=== PATIENT | female | born 1995 | race Caucasian/White ===

== ENCOUNTER 2024-07-14 14:27 | Outpatient (CLI) | payer BC, SELFPAY | END 2024-07-14 14:28 | disposition home or self-care (01) | PROVIDERS: PCP Family Medicine; Visit Provider Family Medicine | DX: E03.9 Hypothyroidism, unspecified (principal); Z11.59 Encounter for screening for other viral diseases | CPT/HCPCS: 80053; 84439; 84443; 86803 ==

== ENCOUNTER 2024-08-16 11:23 | Outpatient (CLI) | payer BC, SELFPAY ==
--- NOTE | 2024-08-16 11:30 | CRLHL7_ITS ---
For Patients: As a result of the Century Cures Act, medical imaging exams and procedure reports are released immediately into your electronic medical record. You may view this report before your referring provider. If you have questions, please contact your health care provider. INDICATION: Elevated liver enzymes TECHNIQUE: Ultrasound abdomen limited. Sonographic images of the right upper quadrant were obtained using mike-scale and color Doppler images. COMPARISON: None. FINDINGS: Liver: Normal in size. Heterogeneous echotexture. No suspicious masses. No intrahepatic biliary dilatation. Gallbladder: Prior cholecystectomy Common bile duct: 7 mm. Pancreas: Unremarkable. Right kidney: Normal in size measuring 11.2 x 3.9 x 6.1 cm. Normal echotexture and cortex. No suspicious masses, stones, or hydronephrosis. Vasculature: Proximal abdominal aorta and IVC are unremarkable. IMPRESSION: 1. Heterogeneous hepatic echotexture, which could indicate acute or chronic hepatic dysfunction. 2. Prominent common bile duct measuring up to 7 mm, likely reservoir effect secondary to prior cholecystectomy. Dictated by Shaniqua Martinez MD @ 08/18/2024 9:04:26 AM (Electronically Signed)
== END 2024-08-16 11:24 | disposition home or self-care (01) ==
LOC: US 11:25
PROVIDERS: PCP Family Medicine; Visit Provider Family Medicine
DX: R74.01 Elevation of levels of liver transaminase levels (principal); K76.9 Liver disease, unspecified
CPT/HCPCS: 76705

== ENCOUNTER 2024-08-29 10:17 | Outpatient (CLI) | payer BC, SELFPAY | END 2024-08-29 10:18 | disposition home or self-care (01) | PROVIDERS: PCP Family Medicine; Visit Provider Family Medicine | DX: R74.01 Elevation of levels of liver transaminase levels (principal); E03.9 Hypothyroidism, unspecified | CPT/HCPCS: 80053; 84443 ==

== ENCOUNTER 2025-08-22 15:09 | Outpatient (CLI) | payer BC, SELFPAY ==
[2025-08-24 13:27] LABS: HPV Source Endocervical
[2025-08-28 16:01] LABS: Pap Test Digital Imaging Done; Pap Test Reviewed by Pathologi Done
== END 2025-08-22 15:10 | disposition home or self-care (01) ==
PROVIDERS: PCP Family Medicine; Visit Provider Family Medicine
DX: Z11.3 Encounter for screening for infections with a predominantly sexual mode of transmission (principal); Z12.4 Encounter for screening for malignant neoplasm of cervix; Z00.00 Encounter for general adult medical examination without abnormal findings
CPT/HCPCS: 80053; 80061; 82306; 84439; 84443; 86592; 86703; 86803; 87491; 87591; 87624; 87625; 88141; 88142; 88175